=== PATIENT | female | born 1995 | race Hispanic/Latino ===

== ENCOUNTER 2016-10-31 12:05 | Emergency (ER) | payer SELFPAY ==
[~2016-10-31] VITALS: Ht 152.4 cm; Wt 44.2 kg
[2016-10-31 12:09] VITALS: BP 116/75; PULSE 67; RESP 15; O2SAT 100
--- NOTE | 2016-10-31 14:17 | ED.REPORT ---
HPI-Abd Pain F Under 40 Date of Service October 31, 2016 ED Provider: Dr. Coley 21 y/o female with no pertinent hx presents to the ED due to constant abdominal pain, onset 3 days ago. 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 Associated sx include "feeling cold" in the abdomen and lack of appetite. She denies nausea, diarrhea, constipation and back pain. Nursing Notes Stated Complaint: ABDOMINAL PAIN Chief Complaint: Female Abdominal Pain Nursing Notes Reviewed: Yes Allergies: Coded Allergies: No Known Allergies (Unverified , 10/31/16) Scheduled Famotidine (Pepcid) 20 Mg Tablet 20 MG PO BID General Time Seen by MD: 14:17 Chief Complaint Abdominal pain Hx Obtained From: Patient Sudden in Onset?: Yes Onset Occurred: 3 days ago Symptom Duration: Since onset Progression since Onset: Constant Location: : Diffuse Quality: Painful Radiation: : Does not radiate Severity: Current: Mild Severity: Maximum: Mild Pertinent Negative: Exacerbated by nothing, Relieved by nothing Recent Healthcare: No recent doctor visit Similar Sx Previous: No Past Medical History Past Medical History denies Past Surgical History denies Smoking History Unknown if Ever Smoker Social History Other Social History: Good social support, Local resident Ambulatory Status Independent Review of Systems Reports: lack of appetite. GI: Reports: Abdominal pain, Denies: Diarrhea, Nausea Musculoskeletal: Denies: Back pain Complete sys rev & neg: except as marked. Physical Exam Initial Vital Signs Vital Signs (First) Date Time Temp Pulse Resp B/P Pulse Ox O2 Delivery O2 Flow Rate FiO2 10/31/16 12:09 36.9 67 15 116/75 100 Room Air Initial VS: Reviewed, Vital signs normal Head / Eyes: Atraumatic, Normocephalic, PERRL Neck: Supple, Full range of motion Extremities: Vascular intact, Neuro intact, No swelling, No tenderness Skin: Warm, Dry, No cyanosis Neurologic: Alert, Oriented, Nonfocal General/Constitutional: Awake, Alert, Not toxic appearing Respiratory / Chest: Atraumatic, Breath sounds NL, Breath sounds = bilat, No respiratory distress, No rales, No rhonchi, No wheezing Cardiovascular: Heart rate NL, Regular rhythm, Heart sounds NL, No gallop, No murmurs, No rubs Abdomen: Atraumatic, Soft, No rebound Bilateral mid-quadrant tenderness. Intermittent voluntary guarding. Back: Atraumatic, Full range of motion, No CVA tenderness Interpretation & Diagnostics Lab Results Interpretation Result Diagram: 10/31/16 1442 10/31/16 1442 Test 10/31/16 14:05 10/31/16 14:42 Hold Urine Received (Received) White Blood Count 5.8th/mm3 (3.8-10.1) Red Blood Count 4.73mil/mm3 (3.90-5.20) Hemoglobin 14.8g/dL (12.0-15.6) Hematocrit 42.3% (35.0-46.0) Mean Corpuscular Volume 89.4fL (81-100) Mean Corpuscular Hemoglobin 31.3pg (27.0-35.0) Mean Corpuscular Hemoglobin Concent 35.0% (32.0-37.0) Red Cell Distribution Width 11.9% (12.3-15.4) Platelet Count 264bil/L (150-400) Neutrophils (%) (Auto) 55.8% (40-74) Lymphocytes (%) (Auto) 33.6% (14-46) Monocytes (%) (Auto) 7.5% (4-12) Eosinophils (%) (Auto) 2.1% (0-5) Basophils (%) (Auto) 1.0% (0-3) Sodium Level 140mEq/L (134-144) Potassium Level 3.7mEq/L (3.5-5.2) Chloride Level 101mEq/L (97-108) Carbon Dioxide Level 26mmol/L (18-29) Blood Urea Nitrogen 12mg/dL (6-20) Creatinine 0.57mg/dL (0.57-1.00) Estimat Glomerular Filtration Rate 192mL/min (>59) Glucose Level 96mg/dL (60-99) Calcium Level 9.3mg/dL (8.5-10.1) Total Bilirubin 0.3mg/dL (0.0-1.2) Aspartate Amino Transf (AST/SGOT) 19U/L (0-50) Alanine Aminotransferase (ALT/SGPT) 22U/L (0-32) Alkaline Phosphatase 99U/L (25-150) Total Protein 7.4g/dL (6.4-8.4) Albumin 4.3g/dL (3.4-5.0) Lipase 47U/L (13-60) Hold Quintana Top Tube Received (Received) Re-Eval/Medical Decision Med Decision/Clinical Course The patient appears to have epigastric discomfort of some sort. There is a language barrier cannot find an hairspring ii inspector so a family member interpreting. Initially she told me was a cold feeling she told the nurse it was a burning. We went back in the room. His face was burning feeling. Her exam was benign however on exam she had some minor pain to bilateral mid lateral quadrants. A partial list of differential diagnoses considered were gastritis, pancreatitis, cholecystitis, and peptic ulcer disease. Source of Hx: Old records Re-Evaluation/Progress : Time of Eval: 15:23 Re-Evaluation/Progress Note: Rechecked pt. Discussed lab results and diagnosis. Informed the pt of the plan to discharge. Pt understands and agrees with plan. F/U instructions and RTER warning given. All questions addressed. Counseled Regarding: Diagnosis, Lab results, Need for follow-up, When/why to return to ED Discharge & Departure Primary Impression: Abdominal pain of unknown cause Disposition: Home Discharge Condition All VS Reviewed: Yes Condition: Stable Patient Instructions: Acute Abdominal Pain (ED) Additional Instructions: You have abdominal pain of unknown cause. You may have an ulcer or gastritis. Follow up with your primary care provider for further evaluation. Take the medication over the next week to see if symptoms improve. Try to eat even if you don't have an appetite. If you don't feel good, eat a bland diet such as rice, bananas, apple sauce and crackers. Return to the emergency department in case of vomiting, increased pain, fever or any other new or worsening symptoms. Referrals: [facility] Scribe Attestation Portions of this note were transcribed by Rick Cisneros. I, , personally performed the history, physical exam and medical decision-making;I reviewed and confirmed the accuracy of the information in the transcribed note. Signed by Mikhail Dickinson. 10/31/16 1528 copies to: [facility] Jennifer Coley MD October 31, 2016 14:17 Rick Cisneros October 31, 2016 14:26
[2016-10-31] MEDS ORDERED: Ondansetron 8 mg ODT Tablet PO ONE (14:30)
[2016-10-31 14:50] LABS: EOSINOPHILS % (AUTO) 2.1 % (0-5); MONOCYTES % (AUTO) 7.5 % (4-12); Mean Corpuscular Hemoglobin 31.3 pg (27.0-35.0); Mean Corpuscular Volume 89.4 fL (81-100); NEUTROPHILS % (AUTO) 55.8 % (40-74); Platelet Count 264 bil/L (150-400)
[2016-10-31] MEDS ORDERED: FAMO20T PO (15:16)
[2016-10-31 15:46] VITALS: BP 115/72; PULSE 63; RESP 18; O2SAT 100
== END 2016-10-31 15:21 | disposition home or self-care (01) ==
LOC: SED 12:05
DX: R10.84 Generalized abdominal pain (principal)

== ENCOUNTER 2016-11-06 16:24 | Emergency (ER) | payer SELFPAY ==
[~2016-11-06] VITALS: Ht 137.2 cm; Wt 42.7 kg
[~2016-11-06 16:24] MED LIST: FAMO20T PO
[2016-11-06 16:31] VITALS: BP 113/73; PULSE 92; RESP 20; O2SAT 98
[2016-11-06 17:01] LABS: BASOPHILS % (AUTO) 0.6 % (0-3); MONOCYTES % (AUTO) 5.8 % (4-12); Mean Corpuscular Hemoglobin 30.9 pg (27.0-35.0); Mean Corpuscular Volume 87.6 fL (81-100); NEUTROPHILS % (AUTO) 66.3 % (40-74); Platelet Count 260 bil/L (150-400)
--- NOTE | 2016-11-06 17:04 | ED.REPORT ---
HPI-Abd Pain F Under 40 Date of Service November 06, 2016 ED Provider: Uriel Campos MD The patient is a 21 year old female who presents to the ED due to epigastric tenderness onset started earlier today. She denies vomiting, fever, nausea, chest pain, sob, hematuria, dysuria, and hematochezia. The pt came in a week ago with similar symptoms, at which time there were no acute findings or causes for her symptoms. The family speaks primarily Mezte[place] but the doctor is able to communicate effectively in Yoruba. Nursing Notes Stated Complaint: ABDOMINAL PAIN, NAUSEA, VOMITING, FEVER Chief Complaint: Female Abdominal Pain Nursing Notes Reviewed: Yes Allergies: Coded Allergies: No Known Allergies (Unverified , 10/31/16) Scheduled Famotidine (Pepcid) 20 Mg Tablet 20 MG PO BID Polyethylene Glycol 3350 (Miralax) 17 Gm Powd.pack 8 GM PO HS Scheduled PRN Acetaminophen (Acetaminophen) 325 Mg Tablet 325 MG PO Q4H PRN PRN For Pain Ondansetron ODT (Zofran ODT) 4 Mg Tablet 4 MG PO Q4H PRN PRN For Nausea General Time Seen by MD: 17:03 Chief Complaint Other (epigastric pain) Hx Obtained From: Patient, Other family... (Father) Arrived By: Walk-in Sudden in Onset?: Yes Onset Occurred: 5 - 8 hours ago Symptom Duration: Since onset Location: : Epigastric Quality: Painful Severity: Current: Moderate Recent Healthcare: Recent doctor visit Similar Sx Previous: Yes Past Medical History Past Medical History denies Past Surgical History denies Smoking History Unknown if Ever Smoker Social History Other Social History: Good social support, Local resident Ambulatory Status Independent Review of Systems Constitutional: Denies: Fever Respiratory: Denies: Shortness of breath Cardiovascular: Denies: Chest pain GI: Reports: Abdominal pain (epigastric), Denies: Hematochezia, Nausea, Vomiting Female: Denies: Dysuria, Hematuria Complete sys rev & neg: except as marked. Physical Exam Initial Vital Signs Vital Signs (First) Date Time Temp Pulse Resp B/P Pulse Ox O2 Delivery O2 Flow Rate FiO2 11/06/16 16:31 36.6 92 20 113/73 98 Room Air Initial VS: Reviewed Head / Eyes: Atraumatic, Normocephalic, PERRL ENT: Mucous membranes moist, Conjunctiva normal Neck: Supple, Non-tender Extremities: Vascular intact, Neuro intact, No swelling, No tenderness Skin: Warm, Dry General/Constitutional: Awake, Alert, Cooperative Respiratory / Chest: Atraumatic, Breath sounds NL, Breath sounds = bilat Cardiovascular: Heart rate NL, Regular rhythm, Heart sounds NL Abdomen: No guarding, No rebound Tenderness/Guarding/Rebound: Positive: Tender epigastric, Negative: Tender RLQ... Back: Atraumatic, Inspection NL Interpretation & Diagnostics Lab Results Interpretation Result Diagram: 11/06/160 11/06/16 1650 Test 11/06/16 16:50 11/06/16 17:33 11/06/16 17:57 White Blood Count 8.9th/mm3 (3.8-10.1) Red Blood Count 4.82mil/mm3 (3.90-5.20) Hemoglobin 14.9g/dL (12.0-15.6) Hematocrit 42.2% (35.0-46.0) Mean Corpuscular Volume 87.6fL (81-100) Mean Corpuscular Hemoglobin 30.9pg (27.0-35.0) Mean Corpuscular Hemoglobin Concent 35.3% (32.0-37.0) Red Cell Distribution Width 11.7% (12.3-15.4) Platelet Count 260bil/L (150-400) Neutrophils (%) (Auto) 66.3% (40-74) Lymphocytes (%) (Auto) 26.2% (14-46) Monocytes (%) (Auto) 5.8% (4-12) Eosinophils (%) (Auto) 1.0% (0-5) Basophils (%) (Auto) 0.6% (0-3) Sodium Level 139mEq/L (134-144) Potassium Level 3.6mEq/L (3.5-5.2) Chloride Level 100mEq/L (97-108) Carbon Dioxide Level 20mmol/L (18-29) Blood Urea Nitrogen 6mg/dL (6-20) Creatinine 0.70mg/dL (0.57-1.00) Estimat Glomerular Filtration Rate 151mL/min (>59) Glucose Level 112mg/dL (60-99) Calcium Level 10.4mg/dL (8.5-10.1) Magnesium Level 2.1mg/dL (1.6-2.6) Total Bilirubin 0.3mg/dL (0.0-1.2) Aspartate Amino Transf (AST/SGOT) 21U/L (0-50) Alanine Aminotransferase (ALT/SGPT) 14U/L (0-32) Alkaline Phosphatase 111U/L (25-150) Total Protein 7.9g/dL (6.4-8.4) Albumin 4.8g/dL (3.4-5.0) Lipase 47U/L (13-60) Hold Quintana Top Tube Received (Received) Hold Urine Received (Received) Urine Color Straw (YELLOW) Urine Appearance Hazy (CLEAR,HAZY) Urine pH 7.0 (5.0-8.0) Urine Specific [place] <1.005 (1.003-1.035) Urine Protein Negativemg/dL (NEG,TRACE) Urine Glucose (UA) Negativemg/dL (NEGATIVE) Urine Ketones Negativemg/dL (NEGATIVE) Urine Occult Blood Trace (NEGATIVE) Urine Nitrite Negative (NEGATIVE) Urine Bilirubin Negative (NEGATIVE) Urine Urobilinogen Normalmg/dL (NORMAL) Urine Leukocyte Esterase Small (NEGATIVE) Urine RBC 0-2/hpf (0-2) Urine WBC 0-5/hpf (0-5) Urine Epithelial Cells Moderate/hpf (NONE-MOD) Urine Crystals None seen (NONE SEEN) Urine Bacteria Moderate/hpf (NONE-FEW) Urine Hyaline Casts None/lpf (NONE) Urine Granular Casts None seen (NONE SEEN) Urine Waxy Casts None seen (NONE SEEN) Urine Red Blood Cell Casts None seen (NONE SEEN) Urine White Blood Cell Casts None seen (NONE SEEN) Urine Mucus None seen (None Seen) Urine Trichomonas None seen (NONE SEEN) Urine Yeast None (NONE SEEN) Urinalysis Comment None Urine Culture Reflexed Indicated X-Ray Abdominal Interpretation IMPRESSION: No acute process. Dictated by: Edilberto Ragsdale M.D. on 11/06/2016 at 17:59 Approved by: Edilberto Ragsdale M.D. on 11/06/2016 at 17:59 Study: 2 view Interpretation / Wet Read by: Interpret - Radiologist Re-Eval/Medical Decision Med Decision/Clinical Course Med Decision/Clinical Course: 21-year-old female with epigastric pain times one day. She was seen for similar one week ago with a negative workup. She has no associated symptoms. She did have one episode of vomiting nonbloody nonbilious. Denies any diarrhea. Urine is negative for infection. Labs are completely stable. Negative . Her white blood cell count is normal. GI cocktail was tried with no improvement in pain. Toradol was then given and her pain resolved. Repeat abdominal exam soft nontender. Right upper quadrant ultrasound no evidence of gallbladder pathology. Urine was negative for infection. Unclear etiology for abdominal pain. Possible constipation. Given her resolution of pain and repeat exam benign and normal workup as above, discussed the family will discharge home with plans to return immediately if she has any new or worsening abdominal pain, right lower quadrant pain, fevers, any other new or worsening symptoms. Re-Evaluation/Progress : Time of Eval: 17:47 Re-Evaluation/Progress Note: Pt vomited up GI cocktail. Counseled Regarding: Diagnosis, Lab results, Need for follow-up, When/why to return to ED Discharge & Departure Primary Impression: Gastritis Gastritis type: unspecified gastritis Chronicity: unspecified Gastritis bleeding: without bleeding Qualified Code: K29.70 - Gastritis, unspecified, without bleeding Additional Impression: Constipation Constipation type: unspecified constipation type Qualified Code: K59.00 - Constipation, unspecified Disposition: Home Discharge Condition All VS Reviewed: Yes Condition: Stable Additional Instructions: Thank you for entrusting us with your care today. The source of your abdominal pain is not known. Your lab work and ultrasound are both normal. Your x-ray shows possible constipation, this may be the cause of your symptoms. Follow up with your primary care physician as needed. Return to the Emergency Department for any new or worsening symptoms including increased pain, right lower abdominal pain, nausea, vomiting, diarrhea, lightheaded, and syncope. I hope you feel better soon! Referrals: [facility] (PCP) [facility] Scribalize Attestation Portion of this note were transcribed by Jolene Dumont. I, Dr. Campos, personally performed the history, physical exam, and medical decision-making: I reviewed and confirmed the accuracy for the information in the transcribed note. Signed by: amish Mccracken, 11/06/16 1800 copies to: [facility] Uriel Campos MD November 06, 2016 17:04 Jolene Dumont November 06, 2016 17:12
[2016-11-06] MEDS ORDERED: LidocaineVisc 2%:Antacid 1:1 10 mL Syringe PO ONE (17:10)
[2016-11-06 17:22] LABS: Magnesium 2.1 mg/dL (1.6-2.6)
--- NOTE | 2016-11-06 18:01 | DRSVH ---
PROCEDURE: X-RAY ACUTE ABDOMINAL SERIES ([id number]) INDICATIONS: abd pain epigastric TECHNIQUE: One view chest and two views of the abdomen were acquired. COMPARISON: [facility], , [facility], 11/06/2016, 17:10. FINDINGS: Surgical changes and devices: None. Chest: Lungs are clear. Heart size is normal. No pleural effusions. No pneumoperitoneum. Abdomen: Bowel gas pattern is normal. No suspicious calcifications. Visualized solid organ contour s appear normal. Bones: No suspicious bony lesions. IMPRESSION: No acute process. Dictated by: Edilberto Ragsdale M.D. on 11/06/2016 at 17:59 Approved by: Edilberto Ragsdale M.D. on 11/06/2016 at 17:59
[2016-11-06 18:18] LABS: APPEARANCE,URINE HAZY (CLEAR,HAZY); COLOR,URINE STRAW (YELLOW); OCCULT BLOOD,URINE TRACE (NEGATIVE); UROBILINOGEN,URINE NORMAL (NORMAL)
[2016-11-06] MEDS ORDERED: POLY17PO6 PO (18:28)
[2016-11-06] MEDS ORDERED: ACET325T51 PO (18:28)
[2016-11-06] MEDS ORDERED: ONDA4TAB9 PO (18:31)
--- NOTE | 2016-11-06 18:43 | DRSVH ---
PROCEDURE: US ABDOMEN, LIMITED ([id number]) INDICATIONS: RUQ US TECHNIQUE: Real-time focused scanning was performed of the abdomen, with image documentation. COMPARISON: None. FINDINGS: Liver is within normal limits. Gallbladder is within normal limits. No biliary ductal dilat ation. Pancreas not well-seen. IMPRESSION: No acute process. Dictated by: Edilberto Ragsdale M.D. on 11/06/2016 at 18:42 Approved by: Edilberto Ragsdale M.D. on 11/06/2016 at 18:42
[2016-11-06 19:00] VITALS: BP 107/63; PULSE 85; RESP 15; O2SAT 99
== END 2016-11-06 18:58 | disposition home or self-care (01) ==
LOC: SED 16:24
DX: K29.70 Gastritis, unspecified, without bleeding (principal); K59.00 Constipation, unspecified
CPT/HCPCS: 36415; 74022; 76705; 80053; 81000; 81025; 83690; 83735; 85025; 87086; 96372; 99285; J1885